=== PATIENT | male | born 1990 ===

== ENCOUNTER 2023-01-01 07:36 | Emergency (ER) | payer OTHER, SELFPAY ==
[2023-01-01 07:47] VITALS: BP 101/60; PULSE 69; RESP 16; TEMP 37.1; O2SAT 98; BMI 27.1
[2023-01-01 08:14] LABS: IDNOW Serial# 08D9AD1C; Strep A Nucleic Acid Positive (Negative)
--- NOTE | 2023-01-01 09:08 | ED.GENADULT ---
HPI - General Adult General Chief complaint: General Medical Stated complaint: strep throat Time Seen by Provider: 01/01/23 09:01 Source: patient Mode of arrival: ambulatory Limitations: no limitations History of Present Illness HPI narrative: 32 yo male presents to the ER for evaluation of sore throat and diffuse body aches since yesterday. He reports difficulty eating and drinking due to pain. No fevers. No headaches or neck pain. No known sick contacts. MD complaint: sore throat and body aches Onset (ago): day(s) (1) Location: mouth Radiation: neck Severity: severe Quality: stabbing and aching Pain Consistency: constant Relieving factors: none Exacerbating factors: eating Associated symptoms: loss of appetite, malaise and weakness Treatments prior to arrival: none Related Data Previous Rx's Medication Instructions Recorded amoxicillin 500 mg-potassium 1 tab PO BID #20 tabs 01/01/23 clavulanate 125 mg tablet (Augmentin) ibuprofen 600 mg tablet 600 mg PO Q8H PRN fever or pain 01/01/23 #20 tabs Allergies Allergy/AdvReac Type Severity Reaction Status Date / Time No Known Allergies Allergy Verified 01/01/23 07:47 Review of Systems Review of Systems: Yes all other systems are reviewed and are negative [facility] Social History Social History Advance Directives: No Advance Directives Information Provided: No Physical Exam ED Vital Signs: Vital Signs - 24 hr 01/01/23 07:47 Temperature 98.7 F Pulse Rate 69 Respiratory Rate 16 Blood Pressure 101/60 Pulse Oximetry 98 BMI result Body Mass Index 27.1 Appearance: Alert. Oriented X3. No acute distress. Head: normocephalic, atraumatic. Eyes: Pupils equal, round and reactive to light. ENT: Pharynx normal. + tonsillar swelling bilaterally w/ exudate. uvula midline, handling secretions normally. normal voice. normal TMs bilaterally. Neck: Normal inspection. Neck supple. CVS: Normal heart rate and rhythm. Pulses normal. Respiratory: No respiratory distress. Breath sounds normal. Abdomen: Soft and nontender. +BS x4 Skin: Skin warm and dry. Normal skin color. Normal skin turgor. No rashes. Extremities: No lower extremity edema. No joint swelling. Neuro/psych: Oriented X 3. grossly normal, nonfocal. CN II-XII intact. Normal speech and cognition. Medical Decision Making Medical Decision Making MDM Narrative: 32 yo male presenting with sore throat and body aches. exam c/w strep. no evidence of abscess. handling secretions and nontoxic appearing. strep + will treat w/ po abx and supportive care. patient counseled on dx and tx, return precautions. stable for d/c home Differential Diagnosis Differential Diagnoses: The differential diagnosis associated with the presentation includes strep, covid, flu, rsv, other viral syndrome, bronchitis, pneumonia, no evidence of peritonsillar abcsess or retropharyngeal abscess Lab Data [facility] Lab Attestation statement: I reviewed the patient's lab results. Labs: Lab Results 01/01/23 Range/Units 07:56 S. pyogenes GrpA LISA Positive A (Negative) Independent Historian Clinical information obtained from an independent historian. History obtained from or confirmed by: Spouse Prescription Management I considered prescription management with: Pain Medication and Antibiotic Critical Care Time Critical Care Time Critical Care Time: No Discharge Plan Discharge Clinical Impression: Strep throat Patient Disposition: Home, Self-Care Instructions: Strep Throat (DC) Additional Instructions: you tested positive for strep throat Take the prescribed antibiotics as directed, complete the entire course and do not miss any doses use warm salt water gargles 3 times per day recommend over the counter chloraseptic spray or cepacol lozenges to help numb your throat drink plenty of fluids change your toothbrush If you develop new or worsening symptoms call 911 or come back to the ER for further evaluation. Prescriptions: New amoxicillin-pot clavulanate [Augmentin] 500-125 mg tablet 1 tab PO BID Qty: 20 0RF ibuprofen 600 mg tablet 600 mg PO Q8H PRN (Reason: fever or pain) Qty: 20 0RF Stand Alone Forms: Work/School Release
== END 2023-01-01 09:26 | disposition home or self-care (01) ==
PROVIDERS: Emergency Provider Emergency Medicine
DX: J02.0 Streptococcal pharyngitis (principal)
CPT/HCPCS: 87651; 99282; 99283